=== PATIENT | female | born 1985 | race Caucasian/White ===

== ENCOUNTER → 2017-04-01 | Outpatient (CLI) | payer MEDICAID ==
[~2017-04-01] MED LIST: ANASPAZ0.125 M1 PO; BUSPIRONE HCL15 MG PO; CEFUROXIME AXE250 MG PO; CLONIDINE 0.2M0.2 MG PO; PROPRANOLOL HCL40 MG PO; RANITIDINE HCL150 MG PO; TIZANIDINE HCL 44 MG PO; WARFARIN SODIUM4 MG PO
--- NOTE | 2017-04-02 10:17 | RADIOLOGY REPORT PS360 ---
MRI-C-SPINE W/O, MRI-3D RENDERING/MYELOGRAM HISTORY: Neck pain and upper back pain NECK PAIN ORDERING PHYSICIAN: Johnnie Infante MD PATIENT AGE: 31 years COMPARISON: None TECHNIQUE: Standard multiplanar multiecho sequences are performed without contrast. 3-D MIP and myelographic images are also rendered and reviewed FINDINGS: There is normal alignment. There is only minimal cerebellar tonsillar ectopia 1 to 2 mm which is questionable clinical significance. There is increased T2 signal within the posterior aspect of the sphenoid sinus which is incompletely imaged and nonspecific. There is straightening of the cervical lordosis. C2-C3: Unremarkable. C3-C4: Unremarkable. 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 C5-C6: There is mild congenital narrowing of the canal at 9 mm no cord impingement. See 6 C7. Minimal left foraminal disc bulging without impingement. C7-T1: Unremarkable. No disc herniation. Unremarkable signal intensity of the cord. IMPRESSION: 1. No evidence of disc herniation or neural impingement 2. Straightening of cervical lordosis nonspecific which may be positional or may be seen with muscle spasm. 3. 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
== END ==
LOC: RAD 03-25 14:30
DX: M54.2 Cervicalgia (principal)